=== PATIENT | female | born 1985 | race Caucasian/White ===

== ENCOUNTER 2019-02-22 11:35 | Emergency (ER) | payer MEDICAID ==
[~2019-02-22] VITALS: Ht 160 cm; Wt 77.3 kg
[~2019-02-22 11:35] MED LIST: AMBIEN5 MG PO; BP MED PO; CLEOCIN HCL150 MG PO; HYDROCODONE-APA1 TAB PO; IBUPROFEN600 MG PO; PAXIL20 MG PO
[2019-02-22 11:42] VITALS: Ht 160 cm; Wt 77.3 kg
[2019-02-22] MEDS ORDERED: TORADOL10 MG PO (12:33)
[2019-02-22 12:49] VITALS: BP 131/74
== END 2019-02-22 12:50 | disposition home or self-care (01) ==
LOC: D.ER 11:35
DX: M25.562 Pain in left knee (principal)

== ENCOUNTER 2019-03-18 19:47 | Emergency (ER) | payer MEDICAID ==
[~2019-03-18] VITALS: Ht 160 cm; Wt 86.4 kg
[~2019-03-18 19:47] MED LIST changes: +TORADOL10 MG PO
[2019-03-18 19:53] VITALS: Ht 160 cm; Wt 86.4 kg
[2019-03-18 20:19] LABS: HEMATOCRIT 37.2 % (36.0-48.0); LYMPHOCYTES 7.4 % (15-50); MCH 31.1 pg (26.0-34.0); MCHC 34.9 g/dL (31.0-37.0); MEAN PLATELET VOLUME 8.9 fL (7.4-10.4); NEUTROPHILS 87.4 % (40-80); PLATELET COUNT 173 10x3/uL (130-400); RBC 4.18 10x6/uL (4.00-5.40); RDW 13.1 % (11.5-14.5); WBC 12.6 10x3/uL (4.8-10.8)
[2019-03-18] MEDS ORDERED: CLEOCIN HCL300 MG PO (20:24)
[2019-03-18 20:34] LABS: HCG SERUM NEGATIVE (NEGATIVE)
[2019-03-18 20:35] LABS: ALBUMIN 3.8 g/dL (3.4-5.0); ALKALINE PHOSPHATASE 65 U/L (46-116); ALT (SGPT) 19 U/L (10-68); BILIRUBIN - TOTAL 0.72 mg/dL (0.2-1.3); CALC OSMOLALITY 273 mosm/kg (275-300); CALCIUM 8.6 mg/dL (8.5-10.1); CARBON DIOXIDE 26.2 mmol/L (21.0-32.0); CHLORIDE - SERUM 101 mmol/L (98-107); CREATININE - SERUM 0.9 mg/dL (0.6-1.3); GLUCOSE 87 mg/dL (74-106); PROTEIN - SERUM 7.8 g/dL (6.4-8.2); SODIUM 137 mmol/L (136-145); UREA NITROGEN 15 mg/dL (7-18); eGFR NON AFRICAN AMERICAN 77 mL/min (90-120)
[2019-03-18 20:37] LABS: POTASSIUM - SERUM 2.9 mmol/L (3.5-5.1)
[2019-03-18 20:53] LABS: APPEARANCE CLEAR (CLEAR); BILIRUBIN NEGATIVE (NEGATIVE); COLOR YELLOW (YELLOW); GLUCOSE NEGATIVE (NEGATIVE); KETONE NEGATIVE (NEGATIVE); NITRITE NEGATIVE (NEGATIVE); PROTEIN 1+ mg/dL (NEGATIVE)
[2019-03-18 20:57] LABS: BACTERIA MODERATE /hpf (NONE SEEN); RED CELLS - URINE 0-5 /hpf (0-5)
[2019-03-18 22:41] VITALS: BP 134/86
== END 2019-03-18 22:43 | disposition home or self-care (01) ==
LOC: D.ER 19:47
PROVIDERS: Family Medicine
DX: L03.113 Cellulitis of right upper limb (principal); F17.200 Nicotine dependence, unspecified, uncomplicated

== ENCOUNTER 2020-10-25 14:40 | Inpatient (IN) | payer MEDICAID ==
[~2020-10-25] VITALS: Ht 157.5 cm; Wt 87.4 kg
[~2020-10-25 14:40] MED LIST changes: +CLEOCIN HCL300 MG PO
--- NOTE | 2020-10-25 15:09 | NUR ---
URINE SPEC COLLECTED, LABELED AT BS AND SENT TO LAB
[2020-10-25 15:23] LABS: HCG URINE NEGATIVE (NEGATIVE)
[2020-10-25 15:24] LABS: BILIRUBIN 3+ (NEGATIVE); KETONE NEGATIVE (NEGATIVE); NITRITE NEGATIVE (NEGATIVE); UROBILINOGEN NORMAL mg/dL (< 2)
[2020-10-25 15:26] LABS: BACTERIA FEW HPF (NONE SEEN)
[2020-10-25 15:43] LABS: BASOPHILS 0.3 % (0-2); EOSINOPHILS 0.1 % (0-7); HEMATOCRIT 41.4 % (36.0-48.0); HEMOGLOBIN 13.8 g/dL (12-16); IMMATURE GRANULOCYTES 0.3 % (0-5); LYMPHOCYTE ABS# 1.63 10x3/uL (1.18-3.74); LYMPHOCYTES 21.3 % (15-50); MCH 29.4 pg (26.0-34.0); MCHC 33.3 g/dL (31.0-37.0); MCV 88.3 fL (80.0-100.0); MEAN PLATELET VOLUME 9.2 fL (7.4-10.4); MONOCYTES 7.3 % (2-11); NEUTROPHIL ABS# 5.43 10x3/uL (1.56-6.13); NEUTROPHILS 70.7 % (40-80); RBC 4.69 10x6/uL (4.00-5.40); RDW 13.1 % (11.5-14.5); WBC 7.7 10x3/uL (4.8-10.8)
[2020-10-25 15:48] LABS: PLATELET COUNT 312 10x3/uL (130-400)
[2020-10-25 15:55] LABS: CALC OSMOLALITY 271 mosm/kg (275-300); CALCIUM 9.3 mg/dL (8.5-10.1); CARBON DIOXIDE 31.1 mmol/L (21.0-32.0); CHLORIDE - SERUM 99 mmol/L (98-107); CREATININE - SERUM 0.8 mg/dL (0.6-1.3); GLUCOSE 100 mg/dL (74-106); POTASSIUM - SERUM 3.4 mmol/L (3.5-5.1); SODIUM 137 mmol/L (136-145); UREA NITROGEN 8 mg/dL (7-18); eGFR NON AFRICAN AMERICAN 88 mL/min (90-120)
[2020-10-25 16:05] LABS: ALBUMIN 2.8 g/dL (3.4-5.0); ALKALINE PHOSPHATASE 509 U/L (30-120); ALT (SGPT) 569 U/L (10-68); AMYLASE - SERUM 72 U/L (25-115); BILIRUBIN - TOTAL 4.12 mg/dL (0.2-1.3); LIPASE 201 U/L (73-393); PROTEIN - SERUM 8.6 g/dL (6.4-8.2); TROPONIN-I < 0.017 ng/mL (0.000-0.060)
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
--- NOTE | 2020-10-25 16:29 | NUR ---
PATIENT TO CT
--- NOTE | 2020-10-25 16:36 | NUR ---
DR OROZCO AT BEDSIDE
--- NOTE | 2020-10-25 17:10 | NUR ---
REPORT GIVEN TO ENMA SANCHEZ ON MED SURG.
--- NOTE | 2020-10-25 17:20 | NUR ---
RECEIVED TO ROOM 2237 VIA FROM ER. A/O X3. C/O SOME ABDOMINAL PAIN AT THIS TIME. WILL MONITOR. SKIN IS INTACT WITHOUT REDNESS. SCLERA NOTED TO BE SOMEWHAT YELLOW. DENIES NEEDS OTHER THAN DRINK.
[2020-10-25 17:22] VITALS: BP 119/73; BMI 16.5
[2020-10-26 05:23] LABS: BASOPHILS 0.5 % (0-2); EOSINOPHILS 0.3 % (0-7); HEMATOCRIT 37.1 % (36.0-48.0); HEMOGLOBIN 12.2 g/dL (12-16); IMMATURE GRANULOCYTES 0.2 % (0-5); LYMPHOCYTE ABS# 1.87 10x3/uL (1.18-3.74); MCHC 32.9 g/dL (31.0-37.0); MCV 88.3 fL (80.0-100.0); MEAN PLATELET VOLUME 9.5 fL (7.4-10.4); MONOCYTES 7.9 % (2-11); NEUTROPHIL ABS# 3.63 10x3/uL (1.56-6.13); NEUTROPHILS 60.1 % (40-80); RDW 13.4 % (11.5-14.5)
[2020-10-26 05:29] LABS: PLATELET COUNT 234 10x3/uL (130-400)
[2020-10-26 05:48] LABS: ALBUMIN 2.2 g/dL (3.4-5.0); ALKALINE PHOSPHATASE 459 U/L (30-120); ALT (SGPT) 414 U/L (10-68); BILIRUBIN - TOTAL 3.32 mg/dL (0.2-1.3); CALC OSMOLALITY 269 mosm/kg (275-300); CALCIUM 8.3 mg/dL (8.5-10.1); CARBON DIOXIDE 28.6 mmol/L (21.0-32.0); CHLORIDE - SERUM 101 mmol/L (98-107); CREATININE - SERUM 0.8 mg/dL (0.6-1.3); GLUCOSE 98 mg/dL (74-106); MAGNESIUM - SERUM 2.1 mg/dL (1.8-2.4); POTASSIUM - SERUM 4.3 mmol/L (3.5-5.1); PROTEIN - SERUM 7.1 g/dL (6.4-8.2); SODIUM 136 mmol/L (136-145); UREA NITROGEN 8 mg/dL (7-18); eGFR NON AFRICAN AMERICAN 88 mL/min (90-120)
[2020-10-26 06:28] LABS: UDS - AMPHET POSITIVE QUAL (NEGATIVE); UDS - BARB NEGATIVE QUAL (NEGATIVE); UDS - BENZO NEGATIVE QUAL (NEGATIVE); UDS - COCAINE NEGATIVE QUAL (NEGATIVE); UDS - OPIATE POSITIVE QUAL (NEGATIVE); UDS - PCP NEGATIVE QUAL (NEGATIVE); UDS - THC POSITIVE QUAL (NEGATIVE)
[2020-10-26 07:55] LABS: APTT 25.8 SECONDS (22.8-39.4); INR 1.02 (0.85-1.17); PROTIME 12.3 SECONDS (11.6-15.0)
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
--- NOTE | 2020-10-26 10:00 | NUR ---
RESTING QUIETLY IN BED. NO C/O AT THIS TIME. WAITING ON SCAN FOR FOOD.
--- NOTE | 2020-10-26 10:43 | NUR ---
BREAKFAST SERVED IN ROOM. REQUESTED AND GIVEN 2MG MORPHINE SLOW IVP FOR C/O LOWER ABDOMINAL PAIN LEVEL 10. WILL TR.
[2020-10-26 10:56] VITALS: BP 128/70
--- NOTE | 2020-10-26 12:30 | NUR ---
LUNCH SERVED IN ROOM. FEEDS SELF.
[2020-10-26 14:36] VITALS: BP 133/64; BP 98/47
--- NOTE | 2020-10-26 16:04 | NUR ---
REQUESTED AND GIVEN 2MG MORPHINE SLOW IVP FOR C/O MID ABDOMINAL PAIN LEVEL 8. WILL MONITOR. FAMILY AT BEDSIDE,
[2020-10-26 17:43] VITALS: BP 131/67
--- NOTE | 2020-10-26 18:37 | NUR ---
ATE ALL OF SUPPER. DENIES NEEDS. NO CHANGES NOTED.
[2020-10-27 06:59] LABS: BASOPHILS 0.4 % (0-2); EOSINOPHILS 0.2 % (0-7); HEMATOCRIT 35.9 % (36.0-48.0); HEMOGLOBIN 11.9 g/dL (12-16); IMMATURE GRANULOCYTES 0.2 % (0-5); LYMPHOCYTE ABS# 1.36 10x3/uL (1.18-3.74); LYMPHOCYTES 25.8 % (15-50); MCH 29.2 pg (26.0-34.0); MCHC 33.1 g/dL (31.0-37.0); MCV 88.2 fL (80.0-100.0); MEAN PLATELET VOLUME 9.2 fL (7.4-10.4); MONOCYTES 10.6 % (2-11); NEUTROPHIL ABS# 3.32 10x3/uL (1.56-6.13); NEUTROPHILS 62.8 % (40-80); PLATELET COUNT 223 10x3/uL (130-400); RBC 4.07 10x6/uL (4.00-5.40); RDW 13.5 % (11.5-14.5); WBC 5.3 10x3/uL (4.8-10.8)
[2020-10-27 07:21] LABS: ALBUMIN 2.3 g/dL (3.4-5.0); ALKALINE PHOSPHATASE 571 U/L (30-120); ALT (SGPT) 339 U/L (10-68); BILIRUBIN - TOTAL 2.97 mg/dL (0.2-1.3); CALC OSMOLALITY 274 mosm/kg (275-300); CALCIUM 7.9 mg/dL (8.5-10.1); CARBON DIOXIDE 24.4 mmol/L (21.0-32.0); CHLORIDE - SERUM 103 mmol/L (98-107); CREATININE - SERUM 0.8 mg/dL (0.6-1.3); GLUCOSE 152 mg/dL (74-106); MAGNESIUM - SERUM 2.2 mg/dL (1.8-2.4); POTASSIUM - SERUM 4.1 mmol/L (3.5-5.1); PROTEIN - SERUM 6.8 g/dL (6.4-8.2); SODIUM 137 mmol/L (136-145); UREA NITROGEN 7 mg/dL (7-18); eGFR NON AFRICAN AMERICAN 88 mL/min (90-120)
[2020-10-27 08:52] VITALS: BP 114/72
--- NOTE | 2020-10-27 09:29 | NUR ---
PATIENT REQUESTED PAIN MEDICATION, ADMINISTERED PRN PAIN MEDICATION WELL SCHEDULED.NO OTHER NEEDS AT THIS TIME CONTINUE WITH PLAN OF CARE
[2020-10-27 11:09] VITALS: Ht 157.5 cm; Wt 87.4 kg
[2020-10-27 11:19] LABS: INR 1.03 (0.85-1.17); PROTIME 12.5 SECONDS (11.6-15.0)
--- NOTE | 2020-10-27 11:38 | NUR ---
I have reviewed this patient and I concur with the Shift Assessment completed by the Licensed Practical Nurse today this shift.
[2020-10-27 12:48] VITALS: BP 124/70
[2020-10-27] MEDS ORDERED: OMNICEF300 MG PO (16:49)
[2020-10-27] MEDS ORDERED: NICODERM CQ1 EAC3 TRANSDERM (16:49)
[2020-10-27 16:51] VITALS: BP 116/71
[2020-10-28 09:12] LABS: HEPATITIS C ANTIBODY <0.1 S/CO RAT (0.0-0.9)
== END 2020-10-27 18:40 | disposition home or self-care (01) | DRG 442 ==
LOC: D.ER 14:40 → D.MS 16:32 → OBSVTIME 16:32 → D.MS 16:32
PROVIDERS: Family Medicine; Surgery; ADMIT Emergency Medicine; ATTEND Emergency Medicine
DX: B15.9 Hepatitis A without hepatic coma (principal); N39.0 Urinary tract infection, site not specified; E80.6 Other disorders of bilirubin metabolism; R74.01 Elevation of levels of liver transaminase levels; E87.6 Hypokalemia; N83.209 Unspecified ovarian cyst, unspecified side; F41.8 Other specified anxiety disorders

== ENCOUNTER 2020-12-18 16:15 | Emergency (ER) | payer MEDICAID ==
[~2020-12-18] VITALS: Ht 157.5 cm; Wt 83.9 kg
[~2020-12-18 16:15] MED LIST changes: +NICODERM CQ1 EAC3 TRANSDERM; +OMNICEF300 MG PO
[2020-12-18 16:23] VITALS: BP 154/87; Ht 157.5 cm; Wt 83.9 kg
[2020-12-18] MEDS ORDERED: HYDROCODON-ACE1 EA10 PO (18:04)
== END 2020-12-18 18:19 | disposition home or self-care (01) ==
LOC: D.ER 16:15
DX: S82.61XA Displaced fracture of lateral malleolus of right fibula, initial encounter for closed fracture (principal); X58.XXXA Exposure to other specified factors, initial encounter; F17.210 Nicotine dependence, cigarettes, uncomplicated